=== PATIENT | male | born 1950 | race Caucasian/White ===

== ENCOUNTER 2022-04-19 10:05 | Emergency (ER) | payer OTHER, SELFPAY ==
[2022-04-19] VITALS (11 sets, daily range): BP systolic 122–155; BP diastolic 59–78; PULSE 67–79; RESP 16–24; TEMP 36.3–36.8; O2SAT 91–99
--- NOTE | ~2022-04-19 | XR_ITS ---
EXAMINATION: XR chest 2V DATE: 04/19/2022 14:03 INDICATION: Cough and weakness TECHNIQUE: PA and lateral views of the chest were obtained. COMPARISON: Chest radiograph dated 05/30/2017 FINDINGS: The lungs remain clear with no focal airspace opacities, pulmonary edema, pleural effusion or pneumot horax. The cardiomediastinal silhouette is normal. Moderate thoracic spondylosis with bridging osteop hytes at multiple levels consistent with diffuse idiopathic skeletal hyperostosis (DISH). IMPRESSION: 1. No acute cardiopulmonary disease. Reviewed, dictated and finalized at location A.
[2022-04-19 10:27] LABS: Basophils Percent Auto 0.3 % (0.2-1.2); Hematocrit 42.6 % (42.0-52.0); Immature Granulocyte Absolute 0.01 K/mm3 (0.00-0.031); Immature Granulocyte Percent A 0.2 % (0-0.5); Lymphocytes Absolute Auto 0.65 K/mm3 (0.9-3.2); Lymphocytes Percent Auto 11.3 % (18.3-44.2); Mean Corpuscular HGB Conc 32.9 g/dl (32-36); Mean Corpuscular Hemoglobin 33.3 pg (26-34); Mean Corpuscular Volume 101.2 fl (80-100); Mean Platelet Volume 10.2 fl (7.4-10.4); Monocytes Absolute Auto 0.6 K/mm3 (0.1-0.6); Monocytes Percent Auto 11.1 % (2.6-8.5); Neutrophils Absolute Auto 4.4 K/mm3 (1.3-6.7); Neutrophils Percent Auto 77.1 % (45.5-73.1); Platelet Count Result 158 k/mm3 (150-375); Red Blood Count 4.21 M/mm3 (4.6-6.20); Red Cell Distribution Width 12.9 % (11.5-14.5); White Blood Count 5.8 K/mm3 (4.5-10.0)
[2022-04-19 10:43] LABS: Beta-Hydroxybutyrate/Acetoacetate 0.26 mmol/L (0.02-0.27)
[2022-04-19 10:48] LABS: Add Urine Microscopic? YES; Appearance Urine Clear (Clear); Bilirubin Urine Negative (Negative); Blood Urine 2+ (Negative); Color Urine Yellow (Yellow); Glucose Urine UA 3+ mg/dL (Negative); Ketones Urine Trace mg/dL (Negative); Leukocyte Esterase Ur Negative LEU/UL (Negative); Mucus Urine Rare /lpf; Nitrate Urine Negative (Negative); Protein Urine Negative (Negative); RBC Urine 0-2 /hpf (0-2); Specific Grav Ur 1.024 (1.001-1.035); Urobilinogen Urine Negative mg/dL (<2.0); WBC Urine 0-3 /hpf
[2022-04-19 10:54] LABS: Alanine Aminotransferase 32 U/L (6-50); Albumin Level 4.8 g/dL (3.5-5.1); Alkaline Phosphatase 87 U/L (38-126); Anion Gap 12 mmol/L (8-16); Aspartate Amino Transferase 57 U/L (17-59); Bilirubin,Total 0.7 mg/dL (0.2-1.3); Blood Urea Nitrogen 28 mg/dL (9-20); Calcium 9.5 mg/dL (8.4-10.2); Carbon Dioxide 25 mmol/L (22-30); Chloride 104 mmol/L (98-107); Estimated CRCL calculation 47 ml/min; Estimated Glomerular Filt Rate 50; Glucose 144 mg/dL (65-110); Magnesium 2.3 mg/dL (1.6-2.3); Phosphorus 4.3 mg/dL (2.5-4.5); Potassium 4.3 mmol/L (3.4-5.0); Sodium 141 mmol/L (137-145)
--- NOTE | 2022-04-19 13:07 | ED.RECABL ---
HPI - Recheck/Abnormal Lab/Rx General Chief Complaint: Recheck/Abnormal Lab/Rx Stated Complaint: high blood sugar Time Seen by Provider: 04/19/22 12:53 Source: patient and other (assisted care high school admissions representative) Mode of arrival: ambulatory Limitations: no limitations History of Present Illness HPI narrative: Patient is a 71-year-old male with a history of hypertension, schizoaffective disorder, mild intellectual impairment, stage III chronic kidney disease, presenting to the emergency department for evaluation of weakness. Patient states that he feels well despite a mild cough. He denies any focal weakness or numbness. Tnt Line Supervisor at the facility states that patient's legs gave out on him this morning while he was trying to use the restroom, causing him to fall to the ground. Patient did not have any head trauma but landed on his knees. Patient denies any knee pain. He has been ambulatory. There is no loss of consciousness with this episode. No tonic-clonic activity. Patient also reported to have an episode of weakness last night. Per digital marketing associate, glucose has been greater than 200. Patient denies fever, chills, nausea, vomiting, chest pain, abdominal pain. He denies dysuria or hematuria. Patient does report cough without rhinorrhea, congestion, sore throat. Pt and assisted staff pt did not syncopize. Related Data Home Medications Medication Instructions Recorded Confirmed aspirin 81 mg tablet,delayed 81 mg PO DAILY 06/14/20 04/19/22 release (Adult Aspirin Regimen) cholecalciferol (vitamin D3) 10 25 mcg PO DAILY 06/14/20 04/19/22 mcg (400 unit) capsule duloxetine 30 mg capsule,delayed 30 mg PO DAILY 06/14/20 04/19/22 release lisinopril 2.5 mg tablet 2.5 mg PO DAILY 06/14/20 04/19/22 lorazepam 0.5 mg tablet 0.5 mg PO BID PRN Anxiety 06/14/20 04/19/22 metformin 500 mg tablet 500 mg PO DAILY 06/14/20 04/19/22 olanzapine 20 mg tablet 20 mg PO DAILY 06/14/20 04/19/22 simvastatin 40 mg tablet 40 mg PO DAILY 06/14/20 04/19/22 Allergy (diphenhydramine) 25 mg PO Q4-6H PRN Allergy Symptoms 04/19/22 04/19/22 acetaminophen 500 mg capsule 500 mg PO Q6H PRN Headache 04/19/22 04/19/22 aluminum-mag hydroxide-simethicone 30 ml PO Q4-6H PRN Indigestion 04/19/22 04/19/22 200 mg-200 mg-20 mg/5 mL oral susp (Jessenia-Lanta) bisacodyl 5 mg tablet,delayed 10 mg PO DAILY PRN Constipation 04/19/22 04/19/22 release bismuth subsalicylate 525 mg/15 mL 525 mg PO Q3-4H PRN Stomach Upset 04/19/22 04/19/22 oral suspension calcium carbonate 500 mg-vitamin 1 tablet PO DAILY 04/19/22 04/19/22 D3 5 mcg (200 unit) tablet (Oyster Shell Calcium-Vitamin D3) dapagliflozin 10 mg tablet 10 mg PO DAILY 04/19/22 04/19/22 (Farxiga) linagliptin 5 mg tablet (Tradjenta) 5 mg PO DAILY 04/19/22 04/19/22 memantine 5 mg tablet 5 mg PO BID 04/19/22 04/19/22 Allergies Allergy/AdvReac Type Severity Reaction Status Date / Time No Known Allergies Allergy Verified 04/19/22 19:39 Review of Systems Review of Systems: CONSTITUTIONAL: Denies fever, chills, or sweats. ENT: Denies rhinorrhea, congestion, sore throat, or otalgia. CARDIOVASCULAR: Denies chest pain, palpitations, or edema. RESPIRATORY: Reports cough without shortness of breath GASTROINTESTINAL: Denies abdominal pain, nausea, vomiting, or diarrhea. GENITOURINARY: Denies dysuria or hematuria. SKIN: Denies rash or itching. MUSCULOSKELETAL: Denies back pain, joint pain, or myalgia. NEUROLOGIC: Denies headache, numbness, or weakness. [facility] Past Medical History Medical History (Updated 04/19/22 @ 23:46 by Maryellen Velez MD) Chronic kidney disease Hypertension Intellectual delay Schizoaffective disorder Type II diabetes mellitus Family History Family History (Updated 04/19/22 @ 22:13 by Ceci Bustos RN) Other Unknown family medical history Social History Social History Smoking status: Former smoker Second hand tobacco
--- NOTE | 2022-04-19 13:23 | ECG_ITS ---
Measurements Intervals [place] Rate: 68 P: 42 TN: 156 QRS: 52 QRSD: 89 T: -58 QT: 359 QTc: 384 Interpretive Statements SINUS RHYTHM SEPTAL MYOCARDIAL INFARCTION , OF INDETERMINATE AGE [40+ ms Q WAVE IN V1/V2] MODERATE T-WAVE ABNORMALITY, CONSIDER ANTEROLATERAL ISCHEMIA [-0.1+ mV T WAVE IN V3- V6] MODERATE T-WAVE ABNORMALITY, CONSIDER INFERIOR ISCHEMIA [-0.1+ mV T WAVE IN II/aVF] ABNORMAL ECG NO PREVIOUS ECG AVAILABLE FOR COMPARISON Electronically Signed On 04-19-2022 14:00:12 CDT by Obinna Hernandez M.D.
[2022-04-19 14:50] LABS: Troponin I 0.027 ng/mL (0.000-0.034)
[2022-04-19 15:17] LABS: Glucose Point of Care 131 mg/dl (65-105)
[2022-04-19 16:37] LABS: Influenza A QL RT-PCR Positive (Negative); Influenza B QL RT-PCR Negative (Negative); SARS-CoV-2 RNA PCR Negative
[2022-04-19 17:27] LABS: Glucose Point of Care 154 mg/dl (65-105)
[2022-04-19 17:30] LABS: Troponin I 0.024 ng/mL (0.000-0.034)
== END 2022-04-19 18:04 | disposition home or self-care (01) ==
PROVIDERS: Emergency Medicine; Emergency Provider Emergency Medicine; PCP Family Medicine
DX: J10.1 Influenza due to other identified influenza virus with other respiratory manifestations (principal); Z20.822 Contact with and (suspected) exposure to COVID-19; R94.31 Abnormal electrocardiogram [ECG] [EKG]; I12.9 Hypertensive chronic kidney disease with stage 1 through stage 4 chronic kidney disease, or unspecified chronic kidney disease; E11.22 Type 2 diabetes mellitus with diabetic chronic kidney disease; N18.9 Chronic kidney disease, unspecified; Z79.84 Long term (current) use of oral hypoglycemic drugs; F25.9 Schizoaffective disorder, unspecified
CPT/HCPCS: 36415; 71046; 80053; 81001; 82010; 82948; 83735; 84100; 84484; 85025; 87502; 93005; 99284; C9803; U0003; U0005

== ENCOUNTER 2022-04-19 19:38 | Inpatient (IN) | payer OTHER, SELFPAY ==
--- NOTE | ~2022-04-19 | CT_ITS ---
EXAMINATION: CT brain wo con DATE: 04/19/2022 20:10 INDICATION: weakness . TECHNIQUE: Computed tomography (CT) of the head was performed without intravenous contrast. The mA wa s adjusted according to patient size. Iterative reconstruction technique was employed. The dose-lengt h product was 681.00 mGy-cm. COMPARISON: None FINDINGS: No acute intracranial hemorrhage or extra-axial fluid collection. No hydrocephalus, mass, or herniation. No acute ischemic infarct. Unremarkable dural venous sinus attenuation. No acute osseous abnormality. The aerated spaces are clear. Mild atrophy and moderate chronic white matter change. Atherosclerotic intracranial calcification. Bi lateral lens replacements. IMPRESSION: No acute intracranial process. Reviewed, dictated and finalized at location K.
[2022-04-19 19:34] VITALS: BP 129/56; PULSE 66; RESP 18; TEMP 37.4; O2SAT 93
--- NOTE | 2022-04-19 19:41 | ED.WEAKNESS ---
HPI - Weakness General Chief complaint: Weakness Stated complaint: flu+ increased lethargy Time Seen by Provider: 04/19/22 19:41 Source: patient Mode of arrival: ambulatory Limitations: no limitations History of Present Illness HPI Narrative: Patient is a 71-year-old gentleman returning to the emergency department for evaluation of weakness, difficulty with ambulation and slight confusion since discharge from the hospital earlier this afternoon. I evaluated the patient for cough, rigors earlier today, and patient tested positive for influenza A. He tested negative for COVID. His urinalysis and chest x-ray were normal. Blood work was reassuring. Patient then left and had difficulty ambulating up the stairs in his long term, and because they are for high-level functioning adults only, they do not have ability to accommodate patients who are nonambulatory or may require wheelchair. Patient denies any new complaints since discharge. No fall, trauma or injury. Denies headache. Related Data Home Medications Medication Instructions Recorded Confirmed aspirin 81 mg tablet,delayed 81 mg PO DAILY 06/14/20 release (Adult Aspirin Regimen) canagliflozin 100 mg tablet 100 mg PO DAILY 06/14/20 (Invokana) cholecalciferol (vitamin D3) 10 10 mcg PO DAILY 06/14/20 mcg (400 unit) capsule duloxetine 30 mg capsule,delayed 30 mg PO DAILY 06/14/20 release fenofibrate micronized 200 mg 200 mg PO DAILY 06/14/20 capsule linagliptin 5 mg tablet (Tradjenta) 5 mg PO QAM 06/14/20 lisinopril 2.5 mg tablet 2.5 mg PO DAILY 06/14/20 lorazepam 0.5 mg tablet 0.5 mg PO BID PRN 06/14/20 metformin 500 mg tablet 500 mg PO DAILY 06/14/20 olanzapine 20 mg tablet 20 mg PO DAILY 06/14/20 simvastatin 40 mg tablet 40 mg PO DAILY 06/14/20 acetaminophen 500 mg capsule 500 mg PO Q6H PRN Pain (Scale 04/19/22 04/19/22 Score 1-3) Allergies Allergy/AdvReac Type Severity Reaction Status Date / Time No Known Allergies Allergy Verified 04/19/22 19:39 Review of Systems Review of Systems: CONSTITUTIONAL: Denies fever, reports chills CARDIOVASCULAR: Denies chest pain RESPIRATORY: Reports cough without shortness of breath GASTROINTESTINAL: Denies abdominal pain SKIN: Denies rash MUSCULOSKELETAL: Denies back pain NEUROLOGIC: Denies headache, reports diffuse weakness without unilateral weakness or numbness FORMERLY [facility], [facility] Past Medical History Medical History Chronic kidney disease Hypertension Intellectual delay Schizoaffective disorder Type II diabetes mellitus Social History Social History Smoking status: Former smoker Tobacco type: cigarettes and cigars Second hand tobacco smoke exposure: No Alcohol intake: never Substance use: never Substance use type: does not use Exam Narrative: GENERAL: Awake, alert, conversant HEAD: Normocephalic, atraumatic. EYES: PERRLA and EOMI. ENT: Nares clear, no rhinorrhea or epistaxis. Mucous membranes moist. NECK: Supple. CHEST: No respiratory distress, coarse breath sounds bilaterally without wheezing, rhonchi present bilaterally, no rales HEART: Regular rate, sinus rhythm ABDOMEN:Non distended, non tender EXTREMITIES: Normal range of motion. No edema. SKIN: Warm, dry, no rash. NEURO:No focal deficits. Alert and oriented x3, patient is ambulatory does require some assistance. EOMs intact without nystagmus. No facial droop/asymmetry noted bilaterally. Grimace intact. Intact sensation in face. Hearing intact bilaterally. Shoulder shrug intact. Strength 5/5 bilateral upper extremities. Strength 5/5 bilateral lower extremities. Reflexes 2+ patellar. Ambulatory, does require assistance. Course Vital Signs Vital signs: Vital Signs Temperature 37.4 C 04/19/22 19:34 Pulse Rate 66 04/19/22 19:34 Respiratory Rate 18 04/19/22 19:34 Blood Pressure 129/56 L 04/19/22 19:34 Pulse Ox
--- NOTE | 2022-04-19 20:29 | PM.IMHP ---
H&P: HPI History of Present Illness Date/Time: 04/19/22 20:29 Chief Complaint: CONFUSION Narrative: This is a 71-year-old male with past medical history significant for schizoaffective disorder, cognitive impairment, patient lives at a snf he was brought for evaluation due to confusion, generalized weakness, patient is unable to give any history most of the history has been obtained from caregiver who is at bedside and emergency room records as well as emergency room physician, patient was evaluated earlier in the day but was brought back after he was noted that he was having difficulty going up stairs. Preliminary workup was significant for a positive Influenza A. patient preliminary workup was significant for a CPK of 3000. A chest x-ray was clear. Patient has been admitted for further evaluation management and treatment. Review of Systems Review of Systems: ROS unobtainable: Yes unobtainable due to mental status ( Schizoaffective disorder, cognitive impairment.) PMF Past Medical History Medical History (Updated 04/20/22 @ 00:00 by Petr Tyler) Chronic kidney disease Hypertension Intellectual delay Schizoaffective disorder Type II diabetes mellitus Family History Family History (Updated 04/19/22 @ 22:13 by Ceci Bustos RN) Other Unknown family medical history Social History Social History Smoking status: Former smoker Second hand tobacco smoke exposure: No Alcohol intake: never Substance use: never Substance use type: does not use Meds Home Medications and Allergies Home Medications Medication Instructions Recorded Confirmed Type aspirin 81 mg tablet,delayed 81 mg PO DAILY 06/14/20 04/19/22 History release (Adult Aspirin Regimen) cholecalciferol (vitamin D3) 10 25 mcg PO DAILY 06/14/20 04/19/22 History mcg (400 unit) capsule duloxetine 30 mg capsule,delayed 30 mg PO DAILY 06/14/20 04/19/22 History release lisinopril 2.5 mg tablet 2.5 mg PO DAILY 06/14/20 04/19/22 History lorazepam 0.5 mg tablet 0.5 mg PO BID PRN Anxiety 06/14/20 04/19/22 History metformin 500 mg tablet 500 mg PO DAILY 06/14/20 04/19/22 History olanzapine 20 mg tablet 20 mg PO DAILY 06/14/20 04/19/22 History simvastatin 40 mg tablet 40 mg PO DAILY 06/14/20 04/19/22 History Allergy (diphenhydramine) 25 mg PO Q4-6H PRN Allergy Symptoms 04/19/22 04/19/22 History acetaminophen 500 mg capsule 500 mg PO Q6H PRN Headache 04/19/22 04/19/22 History albuterol sulfate 90 mcg/actuation 1 inhalation inhalation Q4-6H PRN 04/19/22 04/19/22 Rx breath activated powder shortness of breath or wheezing #1 inhaler,sensor ea aluminum-mag hydroxide-simethicone 30 ml PO Q4-6H PRN Indigestion 04/19/22 04/19/22 History 200 mg-200 mg-20 mg/5 mL oral susp (Jessenia-Lanta) bisacodyl 5 mg tablet,delayed 10 mg PO DAILY PRN Constipation 04/19/22 04/19/22 History release bismuth subsalicylate 525 mg/15 mL 525 mg PO Q3-4H PRN Stomach Upset 04/19/22 04/19/22 History oral suspension calcium carbonate 500 mg-vitamin 1 tablet PO DAILY 04/19/22 04/19/22 History D3 5 mcg (200 unit) tablet (Oyster Shell Calcium-Vitamin D3) dapagliflozin 10 mg tablet 10 mg PO DAILY 04/19/22 04/19/22 History (Farxiga) ibuprofen 400 mg tablet 400 mg PO TID PRN fever or pain 10 04/19/22 04/19/22 Rx days #30 tabs linagliptin 5 mg tablet (Tradjenta) 5 mg PO DAILY 04/19/22 04/19/22 History memantine 5 mg tablet 5 mg PO BID 04/19/22 04/19/22 History Allergies Allergy/AdvReac Type Severity Reaction Status Date / Time No Known Allergies Allergy Verified 04/19/22 19:39 Vital Signs Vital Signs - 24 hr 04/19/22 19:34 Temperature 99.3 F Pulse Rate 66 Respiratory Rate 18 Blood Pressure 129/56 L Pulse Oximetry 93 Oxygen Delivery Room Air Exam Narrative: Patient is laying in a stretcher Const: General: comfortable, no acute distress, well develop
[2022-04-19] MEDS: ALBUTEROL SULFATE NEB 2.5 MG/3 ML INH 5 MG INHALATION (20:36)
[2022-04-19 20:37] VITALS: PULSE 68; RESP 20
[2022-04-19] MEDS: IPRATROPIUM BR 0.02% INH SOLN 0.5 MG/2.5 ML VIAL INHALATION (20:37)
[2022-04-19 20:45] VITALS: PULSE 73; RESP 20
[2022-04-19 21:10] LABS: Creatine Kinase 3137 U/L (55-170)
[2022-04-19 21:34] VITALS: BP 114/52; PULSE 89; RESP 16; O2SAT 98
--- NOTE | 2022-04-19 21:46 | PC.NURSE ---
Pt got up out bed without assistance and fell down onto bottom, pt did not hit head and no complaints of pain at this time. Dr. Velez notified and assessed pt, ROM assessed. Dr. Velez ok for pt to continue with transfer to medical floor.
--- NOTE | 2022-04-19 22:12 | ADMGEN ---
This patient, Tim Aragon, was admitted to Medical Room 340-01. Patient/family oriented to hospital policies and general routines including ID bracelet, bed and alarms, visiting hours, pain management, procedures, bathroom and other care routines, personal items, smoking policy, room service/diet, and visiting hours. Information on how to activate the Rapid Response Team has been discussed. Patient/Family are encouraged to report perceived risks to care and to ask questions if they do not understand what they are told or what they should do.
[2022-04-19] MEDS: LACTATED RINGERS 1,000 ML 125 ML IV CONT (22:23)
[2022-04-19 22:29] VITALS: BMI 27.5
[2022-04-19 22:40] VITALS: PULSE 89; RESP 16; O2SAT 98
--- NOTE | 2022-04-19 22:42 | PC.NURSE ---
0015 LEFT MESSAGE WITH PT TAX COMPLIANCE AGENT AT [facility]. WAS UNABLE TO COMPLETE ADMISSION QUESTION DUE TO PT INTELLECTUAL DELAY. PT DID COME WITH A MEDICATION LIST BUT NO OTHER MEDICAL HX DOCUMENTATION. WAITING FOR CALL BACK WILL COMPLETE MUCH OF THE ADMISSION WITH INFORMATION I HAVE CURRENTLY.
[2022-04-19 22:50] LABS: Glucose Point of Care 171 mg/dl (65-105)
[2022-04-20] VITALS (12 sets, daily range): BP systolic 122–137; BP diastolic 47–71; PULSE 62–84; RESP 14–20; TEMP 36.2–37.3; O2SAT 92–98
[2022-04-20] MEDS: ALBUTEROL SULFATE NEB 2.5 MG/3 ML INH INHALATION ×4 (04:15→21:36)
[2022-04-20 05:51] LABS: Basophils Percent Auto 0.2 % (0.2-1.2); Hematocrit 37.3 % (42.0-52.0); Hemoglobin 12.3 g/dL (14.0-18.0); Immature Granulocyte Absolute 0.03 K/mm3 (0.00-0.031); Immature Granulocyte Percent A 0.3 % (0-0.5); Lymphocytes Absolute Auto 0.62 K/mm3 (0.9-3.2); Lymphocytes Percent Auto 7.2 % (18.3-44.2); Mean Corpuscular Hemoglobin 33.5 pg (26-34); Mean Corpuscular Volume 101.6 fl (80-100); Mean Platelet Volume 10.1 fl (7.4-10.4); Monocytes Absolute Auto 0.9 K/mm3 (0.1-0.6); Monocytes Percent Auto 10.4 % (2.6-8.5); Neutrophils Absolute Auto 7.1 K/mm3 (1.3-6.7); Neutrophils Percent Auto 81.9 % (45.5-73.1); Platelet Count Result 143 k/mm3 (150-375); Red Blood Count 3.67 M/mm3 (4.6-6.20); Red Cell Distribution Width 13.1 % (11.5-14.5); White Blood Count 8.7 K/mm3 (4.5-10.0)
[2022-04-20 06:02] LABS: Anion Gap 14 mmol/L (8-16); Blood Urea Nitrogen 40 mg/dL (9-20); Calcium 9.1 mg/dL (8.4-10.2); Carbon Dioxide 22 mmol/L (22-30); Chloride 105 mmol/L (98-107); Estimated CRCL calculation 50 ml/min; Estimated Glomerular Filt Rate 55; Glucose 213 mg/dL (65-110); Potassium 4.1 mmol/L (3.4-5.0); Sodium 141 mmol/L (137-145)
--- NOTE | 2022-04-20 06:21 | PC.NURSE ---
[id number] CALLED [facility] AGAIN TO COMPLETE ADMISSION. NO ANSWER LEFT A MESSAGE.
[2022-04-20] MEDS: LACTATED RINGERS 1,000 ML 125 ML IV CONT ×3 (06:40→22:18)
[2022-04-20] MEDS: CHOLECALCIFEROL 1,000 UNITS TABLET 1000 UNITS PO (08:18)
[2022-04-20] MEDS: DULoxetine HCL 30 MG CAPSULE.DR PO (08:18)
[2022-04-20] MEDS: OLANZapine 5 MG TABLET 20 MG PO (08:19)
[2022-04-20] MEDS: ENOXAPARIN 40 MG/0.4 ML SYRINGE SUB-Q (08:19)
[2022-04-20] MEDS: OSELTAMIVIR PHOSPHATE 30 MG CAPSULE PO ×2 (08:19→19:45)
[2022-04-20] MEDS: lisinopriL 2.5 MG TABLET PO (08:19)
[2022-04-20] MEDS: MEMANTINE 5 MG TABLET PO ×2 (08:19→17:14)
[2022-04-20 08:49] LABS: Glucose Point of Care 176 mg/dl (65-105)
[2022-04-20] MEDS: INSULIN ASPART (*BKC) 100 UNITS/ML SUB-Q ×3 (09:22→17:17)
[2022-04-20 09:36] LABS: Creatine Kinase 5668 U/L (55-170)
[2022-04-20 12:17] LABS: Glucose Point of Care 310 mg/dl (65-105)
--- NOTE | 2022-04-20 15:08 | P.PNIM_ITS ---
Progress Note: A&P Assessment and Plan (1) Influenza A: Code(s): J10.1 - Influenza due to other identified influenza virus with other respiratory manifestations Status: Acute Assessment and Plan: Influenza a PCR positive on 04/19/2022 * CXR with no acute findings. Patient maintaining adequate O2 sats on room air * Patient is afebrile * Continue Tamiflu 30 mg b.i.d. x5 days (renally dosed) * Supportive care (2) Rhabdomyolysis: Code(s): M62.82 - Rhabdomyolysis Status: Acute Assessment and Plan: Possibly secondary to influenza vs statin therapy * CK increased to 5668 today * Continue with IV fluid rehydration at 125 ml/hr. Monitor volume status * Statin has been discontinued * Renal function improving. LFTs within normal limits * Continue to trend (3) Chronic kidney disease: Code(s): N18.9 - Chronic kidney disease, unspecified Status: Acute Assessment and Plan: Previously noted baseline creatinine is 1.5 * Renal function appears consistent with baseline, even slightly improved * Continue to monitor renal function closely and avoid nephrotoxic agents (4) Type II diabetes mellitus: Code(s): E11.9 - Type 2 diabetes mellitus without complications Status: Acute Assessment and Plan: Blood sugars elevated above target * Begin Accu-Cheks, sliding scale insulin, hypoglycemic protocol * Continue 4 units novolog scheduled with meals * Check A1c * Diabetic diet * Oral hypoglycemics on hold (5) Muscle weakness (generalized): Code(s): M62.81 - Muscle weakness (generalized) Status: Acute Assessment and Plan: Secondary to rhabdomyolysis and influenza * Patient was not able to ascend stairs at his fdc * Implement fall precautions * Appreciate PT/OT eval (6) Schizoaffective disorder: Code(s): F25.9 - Schizoaffective disorder, unspecified Status: Acute Assessment and Plan: Chronic, no acute issues * Continue home olanzapine Subjective Date/time seen: 04/20/22 15:08 Interval history: Date of service: 04/20/2022 Tim Aragon is a 71-year-old male with a history of intellectual disability currently residing in a fdc, schizoaffective disorder, CKD, type 2 diabetes mellitus, and hypertension who is seen in follow-up for influenza and mild rhabdomyolysis. The patient is feeling very well today. He offers no complaints. He denies muscle weakness or pain. No spasms or cramping. He does endorse occasional cough that is nonproductive. He denies shortness of breath. Denies chest pain. Denies fevers or chills. He does endorse mild rhinorrhea and sneezing. He denies abdominal pain, nausea, or vomiting. He is tolerating his diet without difficulty. Reports having [place] toast for breakfast this morning. He denies dizziness or lightheadedness. Review of Systems Review of Systems: All systems reviewed & are unremarkable except as noted in HPI and below Exam Narrative: General: Well-nourished, well-appearing 71-year-old male, sitting up in bed, comfortable, NARD Neuro: awake, alert and oriented x4, speech clear, no focal neuro deficits noted HEENMT: normocephalic, atraumatic, EOMI, sclerae anicteric Respiratory: clear to auscultation bilaterally, nonlabored breathing Cardio: regular rate, regular rhythm with S1-S2 Abdomen: nondistended, normoactive bowel sounds, soft, nontender to palpation Extremities: no edema, erythema, or tenderness to palpation
--- NOTE | 2022-04-20 15:08 | PM.IMPN ---
Progress Note: A&P Assessment and Plan (1) Influenza A: Code(s): J10.1 - Influenza due to other identified influenza virus with other respiratory manifestations Status: Acute Assessment and Plan: Influenza a PCR positive on 04/19/2022 CXR with no acute findings. Patient maintaining adequate O2 sats on room air Patient is afebrile Continue Tamiflu 30 mg b.i.d. x5 days (renally dosed) Supportive care (2) Rhabdomyolysis: Code(s): M62.82 - Rhabdomyolysis Status: Acute Assessment and Plan: Possibly secondary to influenza vs statin therapy CK increased to 5668 today Continue with IV fluid rehydration at 125 ml/hr. Monitor volume status Statin has been discontinued Renal function improving. LFTs within normal limits Continue to trend (3) Chronic kidney disease: Code(s): N18.9 - Chronic kidney disease, unspecified Status: Acute Assessment and Plan: Previously noted baseline creatinine is 1.5 Renal function appears consistent with baseline, even slightly improved Continue to monitor renal function closely and avoid nephrotoxic agents (4) Type II diabetes mellitus: Code(s): E11.9 - Type 2 diabetes mellitus without complications Status: Acute Assessment and Plan: Blood sugars elevated above target Begin Accu-Cheks, sliding scale insulin, hypoglycemic protocol Continue 4 units novolog scheduled with meals Check A1c Diabetic diet Oral hypoglycemics on hold (5) Muscle weakness (generalized): Code(s): M62.81 - Muscle weakness (generalized) Status: Acute Assessment and Plan: Secondary to rhabdomyolysis and influenza Patient was not able to ascend stairs at his long-term Implement fall precautions Appreciate PT/OT eval (6) Schizoaffective disorder: Code(s): F25.9 - Schizoaffective disorder, unspecified Status: Acute Assessment and Plan: Chronic, no acute issues Continue home olanzapine Subjective Date/time seen: 04/20/22 15:08 Interval history: Date of service: 04/20/2022 Tim Aragon is a 71-year-old male with a history of intellectual disability currently residing in a long-term, schizoaffective disorder, CKD, type 2 diabetes mellitus, and hypertension who is seen in follow-up for influenza and mild rhabdomyolysis. The patient is feeling very well today. He offers no complaints. He denies muscle weakness or pain. No spasms or cramping. He does endorse occasional cough that is nonproductive. He denies shortness of breath. Denies chest pain. Denies fevers or chills. He does endorse mild rhinorrhea and sneezing. He denies abdominal pain, nausea, or vomiting. He is tolerating his diet without difficulty. Reports having [place] toast for breakfast this morning. He denies dizziness or lightheadedness. Review of Systems Review of Systems: All systems reviewed & are unremarkable except as noted in HPI and below Exam Narrative: General: Well-nourished, well-appearing 71-year-old male, sitting up in bed, comfortable, NARD Neuro: awake, alert and oriented x4, speech clear, no focal neuro deficits noted HEENMT: normocephalic, atraumatic, EOMI, sclerae anicteric Respiratory: clear to auscultation bilaterally, nonlabored breathing Cardio: regular rate, regular rhythm with S1-S2 Abdomen: nondistended, normoactive bowel sounds, soft, nontender to palpation Extremities: no edema, erythema, or tenderness to palpation Skin: no rashes or lesions, warm and dry Psych: appropriate mood and affect, judgment and insight intact Objective Data Vital Signs Vital Signs: Vital Signs - 24 hr 04/19/22 19:34 04/19/22 20:37 04/19/22 20:45 Temperature 99.3 F Pulse Rate 66 68 73 Respiratory Rate 18 20 20 Blood Pressure 129/56 L Pulse Oximetry 93 Oxygen Delivery Room Air 04/19/22 21:34 04/19/22 22:40 04/20/22 04:15 Temperature Pulse Rate 89 89 82 Respi
[2022-04-20 17:19] LABS: Glucose Point of Care 173 mg/dl (65-105)
[2022-04-20 19:54] LABS: Glucose Point of Care 185 mg/dl (65-105)
[2022-04-20 20:36] LABS: Hemoglobin A1C 8.1 % (<5.7)
[2022-04-21] VITALS (7 sets, daily range): BP systolic 117–141; BP diastolic 51–61; PULSE 70–96; RESP 18; TEMP 36.5–36.8; O2SAT 94–97
[2022-04-21] MEDS: ALBUTEROL SULFATE NEB 2.5 MG/3 ML INH INHALATION ×2 (04:20→08:28)
[2022-04-21 05:55] LABS: Hemoglobin 12.5 g/dL (14.0-18.0); Mean Corpuscular HGB Conc 32.9 g/dl (32-36); Mean Corpuscular Hemoglobin 33.3 pg (26-34); Mean Corpuscular Volume 101.3 fl (80-100); Mean Platelet Volume 10.9 fl (7.4-10.4); Platelet Count Result 127 k/mm3 (150-375); Red Blood Count 3.75 M/mm3 (4.6-6.20); Red Cell Distribution Width 13.2 % (11.5-14.5); White Blood Count 5.2 K/mm3 (4.5-10.0)
[2022-04-21 06:05] LABS: Alanine Aminotransferase 55 U/L (6-50); Albumin Level 3.6 g/dL (3.5-5.1); Alkaline Phosphatase 66 U/L (38-126); Anion Gap 9 mmol/L (8-16); Aspartate Amino Transferase 133 U/L (17-59); Bilirubin,Total 0.5 mg/dL (0.2-1.3); Blood Urea Nitrogen 21 mg/dL (9-20); Calcium 8.4 mg/dL (8.4-10.2); Carbon Dioxide 23 mmol/L (22-30); Chloride 109 mmol/L (98-107); Estimated CRCL calculation 65 ml/min; Estimated Glomerular Filt Rate > 60; Glucose 148 mg/dL (65-110); Potassium 4.1 mmol/L (3.4-5.0); Sodium 141 mmol/L (137-145)
[2022-04-21] MEDS: LACTATED RINGERS 1,000 ML 125 ML IV CONT ×3 (06:24→23:59)
[2022-04-21 06:28] LABS: Creatine Kinase 5302 U/L (55-170)
[2022-04-21 08:54] LABS: Glucose Point of Care 127 mg/dl (65-105)
[2022-04-21] MEDS: lisinopriL 2.5 MG TABLET PO (08:54)
[2022-04-21] MEDS: MEMANTINE 5 MG TABLET PO ×2 (08:54→17:15)
[2022-04-21] MEDS: CHOLECALCIFEROL 1,000 UNITS TABLET 1000 UNITS PO (08:54)
[2022-04-21] MEDS: ENOXAPARIN 40 MG/0.4 ML SYRINGE SUB-Q (08:54)
[2022-04-21] MEDS: DULoxetine HCL 30 MG CAPSULE.DR PO (08:54)
[2022-04-21] MEDS: OLANZapine 5 MG TABLET 20 MG PO (08:55)
[2022-04-21] MEDS: OSELTAMIVIR PHOSPHATE 30 MG CAPSULE PO ×2 (08:55→20:33)
[2022-04-21] MEDS: INSULIN ASPART (*BKC) 100 UNITS/ML SUB-Q ×3 (08:57→17:18)
--- NOTE | 2022-04-21 10:45 | P.PNIM_ITS ---
Progress Note: A&P Assessment and Plan (1) Influenza A: Code(s): J10.1 - Influenza due to other identified influenza virus with other respiratory manifestations Status: Acute Assessment and Plan: Influenza A PCR positive on 04/19/2022 * CXR with no acute findings. Patient maintaining adequate O2 sats on room air * Patient is afebrile * Continue Tamiflu 30 mg b.i.d. x5 days (renally dosed) * Supportive care (2) Rhabdomyolysis: Code(s): M62.82 - Rhabdomyolysis Status: Acute Assessment and Plan: Most likely secondary to influenza * CK peak at 5668 * Very mild improvement with CK 5302 today * Continue with IV fluid rehydration at 125 ml/hr. Monitor volume status * Statin has been discontinued * Antipsychotic medication less likely to be etiology given long-term use of Zyprexa and timing of onset with influenza * Renal function is stable * Mild elevation in LFTs noted today, likely due to rhabdo. Continue to trend * Continue to trend (3) Chronic kidney disease: Code(s): N18.9 - Chronic kidney disease, unspecified Status: Acute Assessment and Plan: Previously noted baseline creatinine is 1.5 * Creatinine is 1.0 today * Continue to monitor renal function closely and avoid nephrotoxic agents (4) Type II diabetes mellitus: Code(s): E11.9 - Type 2 diabetes mellitus without complications Status: Acute Assessment and Plan: A1c is 8.1. Blood sugars improved today, 130-150 * Accu-Cheks, sliding scale insulin, hypoglycemic protocol * Continue 4 units novolog scheduled with meals * Diabetic diet * Oral hypoglycemics on hold (5) Muscle weakness (generalized): Code(s): M62.81 - Muscle weakness (generalized) Status: Acute Assessment and Plan: Secondary to rhabdomyolysis and influenza * Patient was not able to ascend stairs at his [facility] * Fall precautions * Appreciate PT/OT eval (6) Schizoaffective disorder: Code(s): F25.9 - Schizoaffective disorder, unspecified Status: Acute Assessment and Plan: Chronic, no acute issues * Continue home olanzapine Subjective Date/time seen: 04/21/22 10:45 Interval history: Date of service: 04/21/2022 Tim Aragon is a 71-year-old male with a history of intellectual disability currently residing in a detention, schizoaffective disorder, CKD, type 2 diabetes mellitus, and hypertension who is seen in follow-up for influenza and mild rhabdomyolysis. he is doing well today. He has no complaints. He has been able to ambulate around his room independently. He is not requiring the use of a walker. He feels steady on his feet and denies weakness. No dizziness or l ightheadedness. Denies shortness of breath or cough. No nausea or vomiting. Tolerating his diet. He has no additional concerns. He is in good spirits. Review of Systems Review of Systems: All systems reviewed & are unremarkable except as noted in HPI and below Exam Narrative: General: Well-nourished, well-appearing 71-year-old male, sitting up in bed, comfortable, NARD Neuro: awake, alert and oriented x4, speech clear, no focal neuro deficits noted HEENMT: normocephalic, atraumatic, EOMI, sclerae anicteric Respiratory: clear to auscultation bilaterally, nonlabored breathing Cardio: regular rate, regular rhythm with S1-S2 Abdomen: nondistended, normoactive bowel sounds, soft, nontender to palpation Extremities: no edema, erythema, or tenderness to palp
--- NOTE | 2022-04-21 10:45 | PM.IMPN ---
Progress Note: A&P Assessment and Plan (1) Influenza A: Code(s): J10.1 - Influenza due to other identified influenza virus with other respiratory manifestations Status: Acute Assessment and Plan: Influenza A PCR positive on 04/19/2022 CXR with no acute findings. Patient maintaining adequate O2 sats on room air Patient is afebrile Continue Tamiflu 30 mg b.i.d. x5 days (renally dosed) Supportive care (2) Rhabdomyolysis: Code(s): M62.82 - Rhabdomyolysis Status: Acute Assessment and Plan: Most likely secondary to influenza CK peak at 5668 Very mild improvement with CK 5302 today Continue with IV fluid rehydration at 125 ml/hr. Monitor volume status Statin has been discontinued Antipsychotic medication less likely to be etiology given long-term use of Zyprexa and timing of onset with influenza Renal function is stable Mild elevation in LFTs noted today, likely due to rhabdo. Continue to trend Continue to trend (3) Chronic kidney disease: Code(s): N18.9 - Chronic kidney disease, unspecified Status: Acute Assessment and Plan: Previously noted baseline creatinine is 1.5 Creatinine is 1.0 today Continue to monitor renal function closely and avoid nephrotoxic agents (4) Type II diabetes mellitus: Code(s): E11.9 - Type 2 diabetes mellitus without complications Status: Acute Assessment and Plan: A1c is 8.1. Blood sugars improved today, 130-150 Accu-Cheks, sliding scale insulin, hypoglycemic protocol Continue 4 units novolog scheduled with meals Diabetic diet Oral hypoglycemics on hold (5) Muscle weakness (generalized): Code(s): M62.81 - Muscle weakness (generalized) Status: Acute Assessment and Plan: Secondary to rhabdomyolysis and influenza Patient was not able to [facility] at [facility] Fall precautions Appreciate PT/OT eval (6) Schizoaffective disorder: Code(s): F25.9 - Schizoaffective disorder, unspecified Status: Acute Assessment and Plan: Chronic, no acute issues Continue home olanzapine Subjective Date/time seen: 04/21/22 10:45 Interval history: Date of service: 04/21/2022 Tmi Aragon is a 71-year-old male with a history of intellectual disability currently residing in a jail, schizoaffective disorder, CKD, type 2 diabetes mellitus, and hypertension who is seen in follow-up for influenza and mild rhabdomyolysis. he is doing well today. He has no complaints. He has been able to ambulate around his room independently. He is not requiring the use of a walker. He feels steady on his feet and denies weakness. No dizziness or lightheadedness. Denies shortness of breath or cough. No nausea or vomiting. Tolerating his diet. He has no additional concerns. He is in good spirits. Review of Systems Review of Systems: All systems reviewed & are unremarkable except as noted in HPI and below Exam Narrative: General: Well-nourished, well-appearing 71-year-old male, sitting up in bed, comfortable, NARD Neuro: awake, alert and oriented x4, speech clear, no focal neuro deficits noted HEENMT: normocephalic, atraumatic, EOMI, sclerae anicteric Respiratory: clear to auscultation bilaterally, nonlabored breathing Cardio: regular rate, regular rhythm with S1-S2 Abdomen: nondistended, normoactive bowel sounds, soft, nontender to palpation Extremities: no edema, erythema, or tenderness to palpation Skin: no rashes or lesions, warm and dry Psych: appropriate mood and affect, judgment and insight intact Objective Data Vital Signs Vital Signs: Vital Signs - 24 hr 04/20/22 13:04 04/20/22 16:08 04/20/22 16:17 Temperature 99.1 F Pulse Rate 83 72 72 Respiratory Rate 20 18 18 Blood Pressure 123/47 L Pulse Oximetry 97 Oxygen Delivery 04/20/22 19:48 04/20/22 20:00 04/20/22 21:36 Temperature 97.2 F L Pulse Rate 74 74 73 Respi
[2022-04-21 12:17] LABS: Glucose Point of Care 179 mg/dl (65-105)
[2022-04-21 17:22] LABS: Glucose Point of Care 172 mg/dl (65-105)
[2022-04-21 20:39] LABS: Glucose Point of Care 164 mg/dl (65-105)
[2022-04-22 04:14] VITALS: BP 150/61; PULSE 73; RESP 18; TEMP 36.7; O2SAT 95
[2022-04-22 05:56] LABS: Hematocrit 31.5 % (42.0-52.0); Hemoglobin 10.2 g/dL (14.0-18.0); Mean Corpuscular HGB Conc 32.4 g/dl (32-36); Mean Corpuscular Hemoglobin 33.2 pg (26-34); Mean Corpuscular Volume 102.6 fl (80-100); Mean Platelet Volume 10.8 fl (7.4-10.4); Platelet Count Result 107 k/mm3 (150-375); Red Blood Count 3.07 M/mm3 (4.6-6.20); Red Cell Distribution Width 13.1 % (11.5-14.5); White Blood Count 2.8 K/mm3 (4.5-10.0)
[2022-04-22 06:12] LABS: Alanine Aminotransferase 54 U/L (6-50); Alkaline Phosphatase 38 U/L (38-126); Anion Gap 9 mmol/L (8-16); Aspartate Amino Transferase 96 U/L (17-59); Bilirubin,Total 0.5 mg/dL (0.2-1.3); Blood Urea Nitrogen 19 mg/dL (9-20); Calcium 7.8 mg/dL (8.4-10.2); Carbon Dioxide 28 mmol/L (22-30); Chloride 105 mmol/L (98-107); Estimated CRCL calculation 71 ml/min; Estimated Glomerular Filt Rate > 60; Glucose 120 mg/dL (65-110); Sodium 142 mmol/L (137-145)
[2022-04-22 06:21] LABS: Creatine Kinase 2415 U/L (55-170)
[2022-04-22 08:03] LABS: Glucose Point of Care 116 mg/dl (65-105)
[2022-04-22] MEDS: CHOLECALCIFEROL 1,000 UNITS TABLET 1000 UNITS PO (08:17)
[2022-04-22] MEDS: DULoxetine HCL 30 MG CAPSULE.DR PO (08:17)
[2022-04-22] MEDS: OSELTAMIVIR PHOSPHATE 30 MG CAPSULE PO ×2 (08:17→20:18)
[2022-04-22] MEDS: lisinopriL 2.5 MG TABLET PO (08:17)
[2022-04-22] MEDS: ENOXAPARIN 40 MG/0.4 ML SYRINGE SUB-Q (08:17)
[2022-04-22] MEDS: MEMANTINE 5 MG TABLET PO ×2 (08:17→17:21)
[2022-04-22] MEDS: INSULIN ASPART (*BKC) 100 UNITS/ML SUB-Q ×3 (08:17→17:21)
[2022-04-22] MEDS: OLANZapine 5 MG TABLET 20 MG PO (08:17)
[2022-04-22] MEDS: LACTATED RINGERS 1,000 ML 125 ML IV CONT (08:23)
[2022-04-22 12:13] LABS: Glucose Point of Care 164 mg/dl (65-105)
[2022-04-22] MEDS: FUROSEMIDE INJ 40 MG/4 ML VIAL IV PUSH (12:26)
--- NOTE | 2022-04-22 12:44 | P.PNIM_ITS ---
Progress Note: A&P Assessment and Plan (1) Influenza A: Code(s): J10.1 - Influenza due to other identified influenza virus with other respiratory manifestations Status: Acute Assessment and Plan: Influenza A PCR positive on 04/19/2022 * CXR with no acute findings. Patient maintaining adequate O2 sats on room air * Patient is afebrile * Continue Tamiflu 30 mg b.i.d. x5 days (renally dosed) * Supportive care (2) Rhabdomyolysis: Code(s): M62.82 - Rhabdomyolysis Status: Acute Assessment and Plan: Most likely secondary to influenza * CK peak at 5668 * Trending down with CK 2415 today * Will decrease IV fluids as patient does appear edematous. LR at 80 mL/hour * Lasix 40 mg IV x1 dose * Statin has been discontinued * Antipsychotic medication less likely to be etiology given long-term use of Zyprexa and timing of onset with influenza * Renal function is stable * LFTs trending down. Continue to monitor * Continue to trend CK (3) Muscle weakness (generalized): Code(s): M62.81 - Muscle weakness (generalized) Status: Acute Assessment and Plan: Secondary to rhabdomyolysis and influenza * Patient was not able to ascend stairs at his [facility] * Fall precautions * Appreciate PT/OT eval (4) Leukopenia: Code(s): D72.819 - Decreased white blood cell count, unspecified Status: Acute Assessment and Plan: White blood cell count 2.8 today, previously has been normal throughout admission * Possibly related to acute viral illness * Continue to monitor CBC (5) Chronic kidney disease: Code(s): N18.9 - Chronic kidney disease, unspecified Status: Chronic Assessment and Plan: Previously noted baseline creatinine is 1.5, however renal function has been stable during admission * Creatinine is 0.9 today * Continue to monitor renal function closely and avoid nephrotoxic agents (6) Type II diabetes mellitus: Code(s): E11.9 - Type 2 diabetes mellitus without complications Status: Chronic Assessment and Plan: A1c is 8.1. Blood sugars are controlled * Accu-Cheks, sliding scale insulin, hypoglycemic protocol * Continue 4 units novolog scheduled with meals * Diabetic diet * Oral hypoglycemics on hold (7) Schizoaffective disorder: Code(s): F25.9 - Schizoaffective disorder, unspecified Status: Chronic Assessment and Plan: Chronic, no acute issues * Continue home olanzapine Subjective Date/time seen: 04/22/22 12:44 Interval history: Date of service: 04/22/2022 Tim Aragon is a 71-year-old male with a history of intellectual disability currently residing in a [facility], schizoaffective disorder, CKD, type 2 diabetes mellitus, and hypertension who is seen in follow-up for influenza and rhabdomyolysis. He feels well today. He has no complaints. He denies weakness in his extremities. He is able to ambulate without difficulty. Denies muscle pain or aches. No joint pain. Denies shortness of breath. Endorses occasional cough that is nonproductive. Denies sinus congestion, rhinorrhea, sneezing. He denies shortness of breath. He denies swelling of his extremities. Review of Systems Review of Systems: All systems reviewed & are unremarkable except as noted in HPI and below Exam Narrative: General: Well-nourished, well-appearing 71-year-old male, sitting up in bed, comfortable, NARD Neuro: awake, alert and oriented x
--- NOTE | 2022-04-22 12:44 | PM.IMPN ---
Progress Note: A&P Assessment and Plan (1) Influenza A: Code(s): J10.1 - Influenza due to other identified influenza virus with other respiratory manifestations Status: Acute Assessment and Plan: Influenza A PCR positive on 04/19/2022 CXR with no acute findings. Patient maintaining adequate O2 sats on room air Patient is afebrile Continue Tamiflu 30 mg b.i.d. x5 days (renally dosed) Supportive care (2) Rhabdomyolysis: Code(s): M62.82 - Rhabdomyolysis Status: Acute Assessment and Plan: Most likely secondary to influenza CK peak at 5668 Trending down with CK 2415 today Will decrease IV fluids as patient does appear edematous. LR at 80 mL/hour Lasix 40 mg IV x1 dose Statin has been discontinued Antipsychotic medication less likely to be etiology given long-term use of Zyprexa and timing of onset with influenza Renal function is stable LFTs trending down. Continue to monitor Continue to trend CK (3) Muscle weakness (generalized): Code(s): M62.81 - Muscle weakness (generalized) Status: Acute Assessment and Plan: Secondary to rhabdomyolysis and influenza Patient was not able to [facility] at [facility] Fall precautions Appreciate PT/OT eval (4) Leukopenia: Code(s): D72.819 - Decreased white blood cell count, unspecified Status: Acute Assessment and Plan: White blood cell count 2.8 today, previously has been normal throughout admission Possibly related to acute viral illness Continue to monitor CBC (5) Chronic kidney disease: Code(s): N18.9 - Chronic kidney disease, unspecified Status: Chronic Assessment and Plan: Previously noted baseline creatinine is 1.5, however renal function has been stable during admission Creatinine is 0.9 today Continue to monitor renal function closely and avoid nephrotoxic agents (6) Type II diabetes mellitus: Code(s): E11.9 - Type 2 diabetes mellitus without complications Status: Chronic Assessment and Plan: A1c is 8.1. Blood sugars are controlled Accu-Cheks, sliding scale insulin, hypoglycemic protocol Continue 4 units novolog scheduled with meals Diabetic diet Oral hypoglycemics on hold (7) Schizoaffective disorder: Code(s): F25.9 - Schizoaffective disorder, unspecified Status: Chronic Assessment and Plan: Chronic, no acute issues Continue home olanzapine Subjective Date/time seen: 04/22/22 12:44 Interval history: Date of service: 04/22/2022 Tim Aragon is a 71-year-old male with a history of intellectual disability currently residing in a jail, schizoaffective disorder, CKD, type 2 diabetes mellitus, and hypertension who is seen in follow-up for influenza and rhabdomyolysis. He feels well today. He has no complaints. He denies weakness in his extremities. He is able to ambulate without difficulty. Denies muscle pain or aches. No joint pain. Denies shortness of breath. Endorses occasional cough that is nonproductive. Denies sinus congestion, rhinorrhea, sneezing. He denies shortness of breath. He denies swelling of his extremities. Review of Systems Review of Systems: All systems reviewed & are unremarkable except as noted in HPI and below Exam Narrative: General: Well-nourished, well-appearing 71-year-old male, sitting up in bed, comfortable, NARD Neuro: awake, alert and oriented x4, speech clear, no focal neuro deficits noted HEENMT: normocephalic, atraumatic, EOMI, sclerae anicteric Respiratory: Faint inspiratory crackle in left lung base, nonlabored breathing Cardio: regular rate, regular rhythm with S1-S2 Abdomen: nondistended, normoactive bowel sounds, soft, nontender to palpation Extremities: Fingers are edematous and taut, trace edema of bilateral lower extremities, no edema, erythema, or tenderness to palpation Skin: no rashes or lesions, warm and dry Ps
[2022-04-22 14:00] VITALS: BP 124/52; PULSE 61; RESP 14; TEMP 36.6; O2SAT 98
[2022-04-22] MEDS: LACTATED RINGERS 1,000 ML 80 ML IV CONT (17:23)
[2022-04-22 17:27] LABS: Glucose Point of Care 156 mg/dl (65-105)
[2022-04-22 19:23] VITALS: BP 120/62; PULSE 75; RESP 18; TEMP 36.8; O2SAT 99
[2022-04-22 19:33] LABS: Glucose Point of Care 222 mg/dl (65-105)
[2022-04-22 20:00] VITALS: PULSE 75; RESP 18; O2SAT 99
[2022-04-23 04:38] VITALS: BP 114/58; PULSE 56; RESP 18; TEMP 36.6; O2SAT 95
[2022-04-23 05:45] LABS: Basophils Percent Auto 0.4 % (0.2-1.2); Eosinophils Absolute Auto 0.1 K/mm3 (0-0.3); Eosinophils Percent Auto 2.2 % (0-4.4); Hematocrit 30.7 % (42.0-52.0); Immature Granulocyte Absolute 0.01 K/mm3 (0.00-0.031); Immature Granulocyte Percent A 0.4 % (0-0.5); Lymphocytes Percent Auto 29.1 % (18.3-44.2); Mean Corpuscular HGB Conc 32.6 g/dl (32-36); Mean Corpuscular Hemoglobin 33.3 pg (26-34); Mean Corpuscular Volume 102.3 fl (80-100); Mean Platelet Volume 11.2 fl (7.4-10.4); Monocytes Absolute Auto 0.3 K/mm3 (0.1-0.6); Monocytes Percent Auto 9.8 % (2.6-8.5); Neutrophils Absolute Auto 1.6 K/mm3 (1.3-6.7); Neutrophils Percent Auto 58.1 % (45.5-73.1); Platelet Count Result 106 k/mm3 (150-375); Red Cell Distribution Width 12.7 % (11.5-14.5); White Blood Count 2.8 K/mm3 (4.5-10.0)
[2022-04-23 05:57] LABS: Alanine Aminotransferase 57 U/L (6-50); Albumin Level 3.2 g/dL (3.5-5.1); Alkaline Phosphatase 42 U/L (38-126); Anion Gap 10 mmol/L (8-16); Aspartate Amino Transferase 90 U/L (17-59); Bilirubin,Total 0.4 mg/dL (0.2-1.3); Blood Urea Nitrogen 18 mg/dL (9-20); Carbon Dioxide 29 mmol/L (22-30); Chloride 103 mmol/L (98-107); Creatine Kinase 1260 U/L (55-170); Estimated CRCL calculation 71 ml/min; Estimated Glomerular Filt Rate > 60; Glucose 128 mg/dL (65-110); Potassium 3.7 mmol/L (3.4-5.0); Sodium 142 mmol/L (137-145)
[2022-04-23] MEDS: LACTATED RINGERS 1,000 ML 80 ML IV CONT ×2 (06:59→21:35)
[2022-04-23] MEDS: OSELTAMIVIR PHOSPHATE 30 MG CAPSULE PO ×2 (08:21→20:37)
[2022-04-23] MEDS: OLANZapine 5 MG TABLET 20 MG PO (08:21)
[2022-04-23] MEDS: INSULIN ASPART (*BKC) 100 UNITS/ML SUB-Q ×3 (08:21→17:28)
[2022-04-23] MEDS: CHOLECALCIFEROL 1,000 UNITS TABLET 1000 UNITS PO (08:21)
[2022-04-23] MEDS: MEMANTINE 5 MG TABLET PO ×2 (08:21→17:28)
[2022-04-23] MEDS: ENOXAPARIN 40 MG/0.4 ML SYRINGE SUB-Q (08:21)
[2022-04-23] MEDS: DULoxetine HCL 30 MG CAPSULE.DR PO (08:21)
[2022-04-23] MEDS: lisinopriL 2.5 MG TABLET PO (08:21)
[2022-04-23 08:26] LABS: Glucose Point of Care 124 mg/dl (65-105)
[2022-04-23] MEDS: FUROSEMIDE INJ 40 MG/4 ML VIAL IV PUSH (09:55)
[2022-04-23 12:01] LABS: Glucose Point of Care 159 mg/dl (65-105)
[2022-04-23 14:00] VITALS: BP 134/47; PULSE 57; RESP 18; TEMP 36.4; O2SAT 99
[2022-04-23 14:34] LABS: Creatine Kinase 1217 U/L (55-170)
--- NOTE | 2022-04-23 14:45 | P.PNIM_ITS ---
Progress Note: A&P Assessment and Plan (1) Influenza A: Code(s): J10.1 - Influenza due to other identified influenza virus with other respiratory manifestations Status: Acute Assessment and Plan: Influenza A PCR positive on 04/19/2022 * CXR with no acute findings. Patient maintaining adequate O2 sats on room air * Patient is afebrile * Continue Tamiflu 30 mg b.i.d. x5 days (renally dosed) * Supportive care (2) Rhabdomyolysis: Code(s): M62.82 - Rhabdomyolysis Status: Acute Assessment and Plan: Most likely secondary to influenza * CK peak at 5668 * Trending down with CK 1217 today * IV fluids decreased to 80 mL/hour on 04/22 as patient became edematous * Lasix 40 mg IV x1 dose * Statin has been discontinued * Antipsychotic medication less likely to be etiology given long-term use of Zyprexa and timing of onset with influenza * Renal function is stable * LFTs trending down. Continue to monitor * Continue to trend CK (3) Muscle weakness (generalized): Code(s): M62.81 - Muscle weakness (generalized) Status: Acute Assessment and Plan: Secondary to rhabdomyolysis and influenza * Patient was not able to [facility]end stairs at his [facility] * Fall precautions * Appreciate PT/OT eval. Patient doing well with therapy and able to safely return back to [facility] when CK is improved and transportation can be a rranged. Hopeful discharge tomorrow (4) Leukopenia: Code(s): D72.819 - Decreased white blood cell count, unspecified Status: Acute Assessment and Plan: White blood cell count 2.8 today * Possibly related to acute viral illness * Continue to monitor CBC * Plan for outpatient CBC with differential in 1-2 weeks as an outpatient to assess for resolution following influenza (5) Chronic kidney disease: Code(s): N18.9 - Chronic kidney disease, unspecified Status: Chronic Assessment and Plan: Previously noted baseline creatinine is 1.5, however renal function has been stable during admission * Creatinine is 0.9 today * Continue to monitor renal function closely and avoid nephrotoxic agents (6) Type II diabetes mellitus: Code(s): E11.9 - Type 2 diabetes mellitus without complications Status: Chronic Assessment and Plan: A1c is 8.1. Blood sugars are controlled * Accu-Cheks, sliding scale insulin, hypoglycemic protocol * Continue 4 units novolog scheduled with meals * Diabetic diet * Oral hypoglycemics on hold (7) Schizoaffective disorder: Code(s): F25.9 - Schizoaffective disorder, unspecified Status: Chronic Assessment and Plan: Chronic, no acute issues * Continue home olanzapine Subjective Date/time seen: 04/23/22 14:45 Interval history: Date of service: 04/23/2022 Tim Aragon is a 71-year-old male with a history of intellectual disability currently residing in a [facility], schizoaffective disorder, CKD, type 2 diabetes mellitus, and hypertension who is seen in follow-up for influenza and rhabdomyolysis. He is feeling very well today. He has no complaints. He is ambulating without difficulty. He has been able to walk up and down stairs with therapy and is doing well with this. Appetite is good. Denies muscle aches or pain. Denies weakness. He is in good spirits. Review of Systems Review of Systems: All systems reviewed & are unremarkable except as noted in HPI and below Exam Narrative
--- NOTE | 2022-04-23 14:45 | PM.IMPN ---
Progress Note: A&P Assessment and Plan (1) Influenza A: Code(s): J10.1 - Influenza due to other identified influenza virus with other respiratory manifestations Status: Acute Assessment and Plan: Influenza A PCR positive on 04/19/2022 CXR with no acute findings. Patient maintaining adequate O2 sats on room air Patient is afebrile Continue Tamiflu 30 mg b.i.d. x5 days (renally dosed) Supportive care (2) Rhabdomyolysis: Code(s): M62.82 - Rhabdomyolysis Status: Acute Assessment and Plan: Most likely secondary to influenza CK peak at 5668 Trending down with CK 1217 today IV fluids decreased to 80 mL/hour on 04/22 as patient became edematous Lasix 40 mg IV x1 dose Statin has been discontinued Antipsychotic medication less likely to be etiology given long-term use of Zyprexa and timing of onset with influenza Renal function is stable LFTs trending down. Continue to monitor Continue to trend CK (3) Muscle weakness (generalized): Code(s): M62.81 - Muscle weakness (generalized) Status: Acute Assessment and Plan: Secondary to rhabdomyolysis and influenza Patient [facility] able to [facility] Fall precautions Appreciate PT/OT eval. Patient doing well with therapy and able to safely return back to [facility] when CK is improved and transportation can be arranged. Hopeful discharge tomorrow (4) Leukopenia: Code(s): D72.819 - Decreased white blood cell count, unspecified Status: Acute Assessment and Plan: White blood cell count 2.8 today Possibly related to acute viral illness Continue to monitor CBC Plan for outpatient CBC with differential in 1-2 weeks as an outpatient to assess for resolution following influenza (5) Chronic kidney disease: Code(s): N18.9 - Chronic kidney disease, unspecified Status: Chronic Assessment and Plan: Previously noted baseline creatinine is 1.5, however renal function has been stable during admission Creatinine is 0.9 today Continue to monitor renal function closely and avoid nephrotoxic agents (6) Type II diabetes mellitus: Code(s): E11.9 - Type 2 diabetes mellitus without complications Status: Chronic Assessment and Plan: A1c is 8.1. Blood sugars are controlled Accu-Cheks, sliding scale insulin, hypoglycemic protocol Continue 4 units novolog scheduled with meals Diabetic diet Oral hypoglycemics on hold (7) Schizoaffective disorder: Code(s): F25.9 - Schizoaffective disorder, unspecified Status: Chronic Assessment and Plan: Chronic, no acute issues Continue home olanzapine Subjective Date/time seen: 04/23/22 14:45 Interval history: Date of service: 04/23/2022 Tim Aragon is a 71-year-old male with a history of intellectual disability currently residing in a [facility], schizoaffective disorder, CKD, type 2 diabetes mellitus, and hypertension who is seen in follow-up for influenza and rhabdomyolysis. He is feeling very well today. He has no complaints. He is ambulating without difficulty. He has been able to walk up and down stairs with therapy and is doing well with this. Appetite is good. Denies muscle aches or pain. Denies weakness. He is in good spirits. Review of Systems Review of Systems: All systems reviewed & are unremarkable except as noted in HPI and below Exam Narrative: General: Well-nourished, well-appearing 71-year-old male, sitting up in bed, comfortable, NARD Neuro: awake, alert and oriented x4, speech clear, no focal neuro deficits noted HEENMT: normocephalic, atraumatic, EOMI, sclerae anicteric Respiratory: Clear to auscultation bilaterally, nonlabored breathing Cardio: regular rate, regular rhythm with S1-S2 Abdomen: nondistended, normoactive bowel sounds, soft, nontender to palpation Extremities: Edema of bilateral fingers has markedly improved, tr
[2022-04-23 17:09] LABS: Glucose Point of Care 146 mg/dl (65-105)
[2022-04-23 20:54] LABS: Glucose Point of Care 219 mg/dl (65-105)
[2022-04-23 20:56] VITALS: BP 134/48; PULSE 52; RESP 16; TEMP 36.6; O2SAT 99
--- NOTE | 2022-04-23 21:48 | PC.NURSE ---
Documentation after 1929 on this patient was all done by Kwasi Mojica RN
[2022-04-24 06:00] VITALS: BP 130/56; PULSE 58; RESP 16; TEMP 36.6; O2SAT 99
[2022-04-24 06:02] LABS: Hematocrit 32.6 % (42.0-52.0); Hemoglobin 10.9 g/dL (14.0-18.0); Mean Corpuscular HGB Conc 33.4 g/dl (32-36); Mean Corpuscular Hemoglobin 33.1 pg (26-34); Mean Corpuscular Volume 99.1 fl (80-100); Mean Platelet Volume 10.5 fl (7.4-10.4); Platelet Count Result 121 k/mm3 (150-375); Red Blood Count 3.29 M/mm3 (4.6-6.20); Red Cell Distribution Width 12.4 % (11.5-14.5); White Blood Count 3.6 K/mm3 (4.5-10.0)
[2022-04-24 06:24] LABS: Alanine Aminotransferase 68 U/L (6-50); Albumin Level 3.5 g/dL (3.5-5.1); Alkaline Phosphatase 50 U/L (38-126); Anion Gap 8 mmol/L (8-16); Aspartate Amino Transferase 78 U/L (17-59); Bilirubin,Total 0.6 mg/dL (0.2-1.3); Blood Urea Nitrogen 15 mg/dL (9-20); Calcium 8.2 mg/dL (8.4-10.2); Carbon Dioxide 29 mmol/L (22-30); Chloride 104 mmol/L (98-107); Creatine Kinase 783 U/L (55-170); Estimated CRCL calculation 80 ml/min; Estimated Glomerular Filt Rate > 60; Glucose 153 mg/dL (65-110); Sodium 141 mmol/L (137-145)
[2022-04-24 08:00] VITALS: PULSE 58; RESP 16; O2SAT 99
[2022-04-24 08:22] LABS: Glucose Point of Care 144 mg/dl (65-105)
[2022-04-24] MEDS: MEMANTINE 5 MG TABLET PO (08:31)
[2022-04-24] MEDS: ENOXAPARIN 40 MG/0.4 ML SYRINGE SUB-Q (08:31)
[2022-04-24] MEDS: CHOLECALCIFEROL 1,000 UNITS TABLET 1000 UNITS PO (08:31)
[2022-04-24] MEDS: lisinopriL 2.5 MG TABLET PO (08:32)
[2022-04-24] MEDS: OSELTAMIVIR PHOSPHATE 30 MG CAPSULE PO (08:32)
[2022-04-24] MEDS: OLANZapine 5 MG TABLET 20 MG PO (08:32)
[2022-04-24] MEDS: DULoxetine HCL 30 MG CAPSULE.DR PO (08:33)
--- NOTE | 2022-04-24 10:00 | P.DS_ITS ---
DS: Admitting Diagnosis Discharge Date 04/24/22 1000 Admitting Diagnosis Rhabdomylitis DS: Discharge Diagnosis Discharge Diagnosis (1) Influenza A: Code(s): J10.1 - Influenza due to other identified influenza virus with other respiratory manifestations Status: Acute Assessment and Plan: Influenza A PCR positive on 04/19/2022 * CXR with no acute findings. Patient maintaining adequate O2 sats on room air * Patient is afebrile * Continue Tamiflu 30 mg b.i.d. x5 days (renally dosed) * Supportive care (2) Rhabdomyolysis: Code(s): M62.82 - Rhabdomyolysis Status: Acute Assessment and Plan: Most likely secondary to influenza * CK peak at 5668 * Trending down with CK 783 today * IV fluids decreased to 80 mL/hour on 04/22 as patient became edematous * Lasix 40 mg IV x1 dose * Statin has been discontinued * Antipsychotic medication less likely to be etiology given long-term use of Zyprexa and timing of onset with influenza * Renal function is stable * LFTs trending down. Continue to monitor * Continue to trend CK (3) Muscle weakness (generalized): Code(s): M62.81 - Muscle weakness (generalized) Status: Acute Assessment and Plan: Secondary to rhabdomyolysis and influenza * Patient was not able to ascend stairs at his snf * Fall precautions * Appreciate PT/OT eval. Patient doing well with therapy and able to safely return back to snf when CK is improved and transportation can be arranged. Hopeful discharge tomorrow (4) Leukopenia: Code(s): D72.819 - Decreased white blood cell count, unspecified Status: Acute Assessment and Plan: White blood cell count 3.6 today * Possibly related to acute viral illness * Continue to monitor CBC * Plan for outpatient CBC with differential in 1-2 weeks as an outpatient to assess for resolution following influenza (5) Chronic kidney disease: Code(s): N18.9 - Chronic kidney disease, unspecified Status: Chronic Assessment and Plan: Previously noted baseline creatinine is 1.5, however renal function has been stable during admission * Creatinine is 0.8 today * Continue to monitor renal function closely and avoid nephrotoxic agents (6) Type II diabetes mellitus: Code(s): E11.9 - Type 2 diabetes mellitus without complications Status: Chronic Assessment and Plan: A1c is 8.1. Blood sugars are controlled * Accu-Cheks, sliding scale insulin, hypoglycemic protocol * Continue 4 units novolog scheduled with meals * Diabetic diet * Oral hypoglycemics on hold (7) Schizoaffective disorder: Code(s): F25.9 - Schizoaffective disorder, unspecified Status: Chronic Assessment and Plan: Chronic, no acute issues * Continue home olanzapine DS: Summary Hospital Course Hospital Course: Patient is 71-year-old male with a past medical history of schizoaffective disorder, cognitive impairment who lives at a snf was brought to the ED for confusion, weakness. Patient was noted to not being able to go upstairs. Patient was positive for flu a and was started on Tamiflu. CPK was also drawn and showed elevation greater than 3000. Chest x-ray was completed and was clear. Currently CPK is 783. Patient has been well hydrated throughout the entire visit. Patient was also noted to have an elevated AST/ALT however they are currently trending down and her currently is 78/68. Head CT was performed and showed no acute intracranial findings
--- NOTE | 2022-04-24 10:00 | PM.DS ---
DS: Admitting Diagnosis Discharge Date 04/24/22 1000 Admitting Diagnosis Rhabdomylitis DS: Discharge Diagnosis Discharge Diagnosis (1) Influenza A: Code(s): J10.1 - Influenza due to other identified influenza virus with other respiratory manifestations Status: Acute Assessment and Plan: Influenza A PCR positive on 04/19/2022 CXR with no acute findings. Patient maintaining adequate O2 sats on room air Patient is afebrile Continue Tamiflu 30 mg b.i.d. x5 days (renally dosed) Supportive care (2) Rhabdomyolysis: Code(s): M62.82 - Rhabdomyolysis Status: Acute Assessment and Plan: Most likely secondary to influenza CK peak at 5668 Trending down with CK 783 today IV fluids decreased to 80 mL/hour on 04/22 as patient became edematous Lasix 40 mg IV x1 dose Statin has been discontinued Antipsychotic medication less likely to be etiology given long-term use of Zyprexa and timing of onset with influenza Renal function is stable LFTs trending down. Continue to monitor Continue to trend CK (3) Muscle weakness (generalized): Code(s): M62.81 - Muscle weakness (generalized) Status: Acute Assessment and Plan: Secondary to rhabdomyolysis and influenza Patient was not able to ascend stairs at his residential Fall precautions Appreciate PT/OT eval. Patient doing well with therapy and able to safely return back to residential when CK is improved and transportation can be arranged. Hopeful discharge tomorrow (4) Leukopenia: Code(s): D72.819 - Decreased white blood cell count, unspecified Status: Acute Assessment and Plan: White blood cell count 3.6 today Possibly related to acute viral illness Continue to monitor CBC Plan for outpatient CBC with differential in 1-2 weeks as an outpatient to assess for resolution following influenza (5) Chronic kidney disease: Code(s): N18.9 - Chronic kidney disease, unspecified Status: Chronic Assessment and Plan: Previously noted baseline creatinine is 1.5, however renal function has been stable during admission Creatinine is 0.8 today Continue to monitor renal function closely and avoid nephrotoxic agents (6) Type II diabetes mellitus: Code(s): E11.9 - Type 2 diabetes mellitus without complications Status: Chronic Assessment and Plan: A1c is 8.1. Blood sugars are controlled Accu-Cheks, sliding scale insulin, hypoglycemic protocol Continue 4 units novolog scheduled with meals Diabetic diet Oral hypoglycemics on hold (7) Schizoaffective disorder: Code(s): F25.9 - Schizoaffective disorder, unspecified Status: Chronic Assessment and Plan: Chronic, no acute issues Continue home olanzapine DS: Summary Hospital Course Hospital Course: Patient is 71-year-old male with a past medical history of schizoaffective disorder, cognitive impairment who lives at a residential was brought to the ED for confusion, weakness. Patient was noted to not being able to go upstairs. Patient was positive for flu a and was started on Tamiflu. CPK was also drawn and showed elevation greater than 3000. Chest x-ray was completed and was clear. Currently CPK is 783. Patient has been well hydrated throughout the entire visit. Patient was also noted to have an elevated AST/ALT however they are currently trending down and her currently is 78/68. Head CT was performed and showed no acute intracranial findings. Patient was sitting in the chair when I went to evaluate him. Patient stated that he is doing really well and is ready to go. Patient denies any chest pain, shortness a breath, nausea, vomiting, diarrhea, constipation, weakness or fatigue. Patient is able to eat and is doing well taking in food. Currently labs and vital signs remained stable. Patient will be discharged back home. Status at Discharge Functional status at discharge: independent
[2022-04-24 12:13] LABS: Glucose Point of Care 216 mg/dl (65-105)
[2022-04-24] MEDS: INSULIN ASPART (*BKC) 100 UNITS/ML SUB-Q ×2 (12:29→12:30)
[2022-04-24 14:00] VITALS: BP 134/58; PULSE 53; RESP 16; TEMP 36.4; O2SAT 100
== END 2022-04-24 14:54 | disposition home or self-care (01) | DRG 194 ==
LOC: ANHED 19:41 → ANH3MED 21:21
PROVIDERS: Physician Assistant; Admitting Provider Internal Medicine; Emergency Provider Emergency Medicine; PCP Family Medicine; Visit Provider Nurse Practitioner
DX: J10.1 Influenza due to other identified influenza virus with other respiratory manifestations (principal); M62.82 Rhabdomyolysis; E86.0 Dehydration; E11.22 Type 2 diabetes mellitus with diabetic chronic kidney disease; N18.9 Chronic kidney disease, unspecified; F25.9 Schizoaffective disorder, unspecified; D72.819 Decreased white blood cell count, unspecified; G31.84 Mild cognitive impairment of uncertain or unknown etiology; I12.9 Hypertensive chronic kidney disease with stage 1 through stage 4 chronic kidney disease, or unspecified chronic kidney disease; Z87.891 Personal history of nicotine dependence; Z79.82 Long term (current) use of aspirin
CPT/HCPCS: 36415; 70450; 71046; 80048; 80053; 81001; 82010; 82550; 82948; 83036; 83735; 84100; 84443; 84484; 85025; 85027; 87502; 93005; 94640; 96360; 96361; 96372; 97110; 97116; 97161; 97165; 97530; 97535; 99284; 99285; A9270; C9803; G0378; J1650; J1815; J1940; J7120; U0003; U0005

== ENCOUNTER 2023-06-20 10:08 | Emergency (ER) | payer OTHER, SELFPAY ==
[2023-06-20 10:25] VITALS: BP 115/61; PULSE 58; RESP 16; TEMP 36.9; O2SAT 100
--- NOTE | 2023-06-20 10:33 | ED.SKABFB ---
HPI - Skin/Abscess/Foreign Bdy General Chief complaint: Skin/Abscess/Foreign Body Stated complaint: RASH Time Seen by Provider: 06/20/23 10:33 Source: patient Mode of arrival: ambulatory Limitations: no limitations History of Present Illness HPI narrative: 72 yo M presents with c/o itching to tops of bilateral feet for the past 2 wks. has been applying lotion to feet over the past several days and itching has improved. Staff noticed scratches and scabbing to both feet today with redness to R foot. All systems reviewed and negative except as noted above. Related Data Home Medications Medication Instructions Recorded Confirmed aspirin 81 mg tablet,delayed 81 mg PO DAILY 06/14/20 06/20/23 release (Adult Aspirin Regimen) cholecalciferol (vitamin D3) 10 25 mcg PO DAILY 06/14/20 06/20/23 mcg (400 unit) capsule duloxetine 30 mg capsule,delayed 30 mg PO DAILY 06/14/20 06/20/23 release lisinopril 2.5 mg tablet 2.5 mg PO DAILY 06/14/20 06/20/23 lorazepam 0.5 mg tablet 0.5 mg PO BID PRN Anxiety 06/14/20 06/20/23 metformin 500 mg tablet 500 mg PO DAILY 06/14/20 06/20/23 olanzapine 20 mg tablet 20 mg PO DAILY 06/14/20 06/20/23 simvastatin 40 mg tablet 40 mg PO DAILY 06/14/20 06/20/23 Allergy (diphenhydramine) 25 mg PO Q4-6H PRN Allergy Symptoms 04/19/22 06/20/23 acetaminophen 500 mg capsule 500 mg PO Q6H PRN Headache 04/19/22 06/20/23 aluminum-mag hydroxide-simethicone 30 ml PO Q4-6H PRN Indigestion 04/19/22 06/20/23 200 mg-200 mg-20 mg/5 mL oral susp (Jessenia-Lanta) bisacodyl 5 mg tablet,delayed 10 mg PO DAILY PRN Constipation 04/19/22 06/20/23 release bismuth subsalicylate 525 mg/15 mL 525 mg PO Q3-4H PRN Stomach Upset 04/19/22 06/20/23 oral suspension calcium carbonate 500 mg-vitamin 1 tablet PO DAILY 10/19/22 12/20/23 D3 5 mcg (200 unit) tablet (Oyster Shell Calcium-Vitamin D3) dapagliflozin propanediol 10 mg 10 mg PO DAILY 04/19/22 06/20/23 tablet (Farxiga) linagliptin 5 mg tablet (Tradjenta) 5 mg PO DAILY 04/19/22 06/20/23 memantine 5 mg tablet 5 mg PO BID 04/19/22 06/20/23 Allergies Allergy/AdvReac Type Severity Reaction Status Date / Time No Known Allergies Allergy Verified 06/20/23 10:31 Review of Systems Review of Systems: CONSTITUTIONAL: Denies fever, chills, or sweats. EYES: Denies visual changes, redness, or discharge. ENT: Denies rhinorrhea, congestion, sore throat, or otalgia. CARDIOVASCULAR: Denies chest pain, palpitations, or edema. RESPIRATORY: Denies cough or dyspnea. GASTROINTESTINAL: Denies abdominal pain, nausea, vomiting, or diarrhea. GENITOURINARY: Denies dysuria or hematuria. SKIN: Reports itching to dorsal aspect feet with scabbing and redness MUSCULOSKELETAL: Denies back pain, joint pain, or myalgia. NEUROLOGIC: Denies headache, numbness, or weakness. PSYCHIATRIC: Denies anxiety or depression. All other systems reviewed are negative, except as documented in HPI. [facility] Past Medical History Medical History (Updated 06/20/23 @ 10:42 by Ela Gutierres NP) Chronic kidney disease Hypertension Intellectual delay Schizoaffective disorder Type II diabetes mellitus Family History Family History (Updated 04/19/22 @ 22:13 by Ceci Bustos RN) Other Unknown family medical history Social History Social History Smoking status: Former smoker Second hand tobacco smoke exposure: No Alcohol intake: unknown Substance use: unknown Substance use type: does not use Spiritual care concerns: No Comments At time of signature, agree with nursing past medical, surgical, social and family history. There is no relevant family history pertinent to the presenting complaint. Exam Narrative: GENERAL: This is a well-nourished, well-developed patient, in no apparent distress. HEAD: normocephalic, atraumatic. EYES: PERRL. Sclera clear/white. Vision is grossly intact. EARS: External ears normal NOSE:
== END 2023-06-20 10:48 | disposition home or self-care (01) ==
PROVIDERS: Emergency Provider Nurse Practitioner Family; PCP Emergency Medicine
DX: L03.115 Cellulitis of right lower limb (principal); L30.8 Other specified dermatitis; Z87.891 Personal history of nicotine dependence; I12.9 Hypertensive chronic kidney disease with stage 1 through stage 4 chronic kidney disease, or unspecified chronic kidney disease; E11.22 Type 2 diabetes mellitus with diabetic chronic kidney disease; N18.9 Chronic kidney disease, unspecified; Z79.84 Long term (current) use of oral hypoglycemic drugs; F81.9 Developmental disorder of scholastic skills, unspecified
CPT/HCPCS: 99213; G0463

== ENCOUNTER 2023-06-28 08:51 | Emergency (ER) | payer OTHER, SELFPAY ==
[2023-06-28 08:53] VITALS: BP 121/57; PULSE 68; RESP 16; TEMP 36.8; O2SAT 100
--- NOTE | 2023-06-28 10:04 | ED.LOWEXIN ---
HPI - Extremity Injury (Lower) General Chief Complaint: Extremity Injury, Lower Stated Complaint: feet wounds Time Seen by Provider: 06/28/23 09:53 History of Present Illness HPI Narrative: 72-year-old male presented to the ED for evaluation of a persistent rash on his feet. Patient was diagnosed with allergic reaction the days ago. Care facility was concerned that the rash has been worsening. Patient states the rash has been improving. Patient does have excoriated rash on his bilateral lower extremities. Patient had been on antibiotics and on a topical steroid cream. Related Data Home Medications Medication Instructions Recorded Confirmed aspirin 81 mg tablet,delayed mg 06/28/23 release cephalexin 500 mg capsule 500 mg PO Q8H 06/28/23 06/28/23 cholecalciferol (vitamin D3) 25 06/28/23 06/28/23 mcg (1,000 unit) tablet dapagliflozin propanediol 10 mg mg 06/28/23 tablet (Farxiga) duloxetine 30 mg capsule,delayed mg PO 06/28/23 release linagliptin 5 mg tablet (Tradjenta) mg 06/28/23 lorazepam 0.5 mg tablet mg 06/28/23 memantine 5 mg tablet mg 06/28/23 metformin 500 mg tablet,extended mg PO 06/28/23 release 24 hr multivitamin tablet 06/28/23 simvastatin 40 mg tablet mg 06/28/23 triamcinolone acetonide 0.1 % 1 applic topical BID 06/28/23 06/28/23 topical cream Allergies Allergy/AdvReac Type Severity Reaction Status Date / Time No Known Allergies Allergy Verified 06/28/23 08:56 Review of Systems Review of Systems: All systems reviewed & are unremarkable except as noted in HPI and below PMFSH Past Medical History Medical History (Updated 06/28/23 @ 10:07 by Lorenzo Good MD) Chronic kidney disease Hypertension Intellectual delay Schizoaffective disorder Type II diabetes mellitus Family History Family History (Updated 04/19/22 @ 22:13 by Ceci Bustos RN) Other Unknown family medical history Social History Social History Smoking status: Former smoker Second hand tobacco smoke exposure: No Alcohol intake: unknown Substance use: unknown Substance use type: does not use Spiritual care concerns: No Exam Narrative: APPEARANCE: Well appearing, no pain, no distress, well-nourished. HEAD: normocephalic, atraumatic. EYES: PERRLA/EOMI, conjunctivae clear. NOSE: Normal no drainage EARS:TMS clear with good light reflex. THROAT: Pharynx clear, no exudate. NECK: Supple. No adenopathy, no masses. RESPIRATORY: Airway patent, respirations nonlabored. Clear to auscultation bilaterally, no rales, rhonchi, wheezing. CARDIOVASCULAR: Regular rate and rhythm without murmurs rubs or gallops. ABDOMINAL: Soft, nontender, nondistended, normal bowel sounds MUSCULOSKELETAL: Moves all extremities. Strength/ROM intact, No edema, No calf tenderness. NEURO: Alert. Cranial nerves II through XII intact. Good gait. Good coordination SKIN: Excoriated rash to bilateral lower extremities Course Course Emergency Course: Patient will have his antibiotic duration increased for another 5 days. Patient was also advised to use [id number] steroid cream. Patient was encouraged of close follow-up with primary care physician for wound check. All questions concerns were addressed patient was well-appearing at time of discharge. Vital Signs Vital signs: Vital Signs Temperature 98.3 F 06/28/23 08:53 Pulse Rate 68 06/28/23 08:53 Respiratory Rate 16 06/28/23 08:53 Blood Pressure 121/57 L 06/28/23 08:53 Pulse Oximetry 100 06/28/23 08:53 Temperature 98.3 F 06/28/23 08:53 Pulse Rate 68 06/28/23 08:53 Respiratory Rate 16 06/28/23 08:53 Blood Pressure 121/57 L 06/28/23 08:53 Pulse Oximetry 100 06/28/23 08:53 Discharge Plan Discharge Clinical Impression: Excoriated rash Patient Disposition: Home, Self-Care Condition: Stable Instructions: Antibiotic Form Additional Inst
== END 2023-06-28 10:22 | disposition home or self-care (01) ==
LOC: ANHED 10:12
PROVIDERS: Emergency Provider Emergency Medicine; PCP Emergency Medicine
DX: R21 Rash and other nonspecific skin eruption (principal); E11.22 Type 2 diabetes mellitus with diabetic chronic kidney disease; I12.9 Hypertensive chronic kidney disease with stage 1 through stage 4 chronic kidney disease, or unspecified chronic kidney disease; N18.9 Chronic kidney disease, unspecified; F25.9 Schizoaffective disorder, unspecified; F81.9 Developmental disorder of scholastic skills, unspecified; Z87.891 Personal history of nicotine dependence; Z79.84 Long term (current) use of oral hypoglycemic drugs; Z79.82 Long term (current) use of aspirin
CPT/HCPCS: 99283